=== PATIENT | female | born 1960 | race Caucasian/White ===

== ENCOUNTER 2017-01-07 14:56 | Emergency (ER) | payer OTHER ==
[2017-01-07 15:03] VITALS: BMI 28.1
[2017-01-07 15:09] VITALS: PULSE 83; TEMP 98; O2SAT 100
--- NOTE | 2017-01-07 15:47 | C.PDOC ---
History Of Present Illness <Miroslava Medel Geri Last Filed: 01/07/17 15:45> <Meghana YOUSIFJunior - Last Filed: 01/07/17 17:35> 56-year-old female, presents to the emergency department with complaints of palpitations that started last night, associated with a mild headache. Patient notes back pain and pain in B/L leg pain since yesterday. Denies nausea/vomiting , fevers, shortness of breath, or any other associated symptoms. No other complaints at this time. (Junior Kowalski DO) <Miroslava Medel - Last Filed: 01/07/17 15:45> <Meghana YOUSIFJunior - Last Filed: 01/07/17 17:35> Time Seen by Provider: 01/07/17 15:16 Chief Complaint (Nursing): Chest Pain Past Medical History - Medical History PMH: Arthritis, Asthma Surgical History: Appendectomy Family History: States: Unknown Family Hx - Social History Hx Tobacco Use: No Hx Alcohol Use: No Hx Substance Use: No - Immunization History Hx Tetanus Toxoid Vaccination: No Hx Influenza Vaccination: No Hx Pneumococcal Vaccination: No <Miroslava Medel Violette Nevarez Last Filed: 01/07/17 15:45> Review Of Systems Except As Marked, All Systems Reviewed And Found Negative. Constitutional: Negative for: Fever, Chills Cardiovascular: Positive for: Palpitations Respiratory: Negative for: Shortness of Breath Gastrointestinal: Negative for: Nausea, Vomiting Musculoskeletal: Positive for: Leg Pain. Negative for: Back Pain Neurological: Positive for: Headache <Meghana YOUSIFJunior - Last Filed: 01/07/17 17:35> Physical Exam - Physical Exam Appears: Non-toxic, No Acute Distress Skin: Normal Color, Warm, Dry Head: Atraumatic, Normacephalic Eye(s): bilateral: Normal Inspection, PERRL, EOMI Nose: Normal Throat: Normal Neck: Normal Cardiovascular: Rhythm Regular Respiratory: Normal Breath Sounds Gastrointestinal/Abdominal: Normal Exam Back: Normal Inspection Extremity: Normal ROM <Meghana YOUSIFJunior - Last Filed: 01/07/17 17:35> ED Course And Treatment O2 Sat by Pulse Oximetry: 100 <Miroslava Medel Geri Last Filed: 01/07/17 15:45> - Laboratory Results Result Diagrams: 01/07/17 15:56 01/07/17 15:56 ECG: Interpreted By Me, Viewed By Me ECG Interpretation: No Acute Changes Rate From EC <Meghana YOUSIFJunior - Last Filed: 01/07/17 17:35> Disposition - Disposition Disposition Time: 16:00 - POA Present On Arrival: None <Miroslava Medel - Last Filed: 01/07/17 15:45> <Meghana YOUSIFJunior - Last Filed: 01/07/17 17:35> - Disposition Referrals: [facility], [Non-Staff] - Disposition: HOME/ ROUTINE Condition: STABLE Additional Instructions: Thank you for letting us take care of you today. Your provider was Dr. Kowalski. You were treated for palpitations. The emergency medical care you received today was directed at your acute symptoms. If you were prescribed any medication, please fill it and take as directed. It may take several days for your symptoms to resolve. Return to the Emergency Department if your symptoms worsen, do not improve, or if you have any other problems. Please contact your doctor or call one of the physicians/clinics you have been referred to that are listed on the Patient Visit Information form that is included in your discharge packet. Bring any paperwork you were given at discharge with you along with any medications you are taking to your follow up visit. Our treatment cannot replace ongoing medical care by a primary care provider (PCP) outside of the emergency department. Thank you for allowing the [facility] team to be part of your care today. Follow up with your doctor in 1-2 days for re-evaluation. Instructions: Palpitations (ED) Forms: Gen Discharge Inst Yakut Print Language: GREEK - Clinical Impression Clinical Impression: Abdominal pain <Miroslava Medel - Last Filed: 01/07/17 15:45> - Scribe Statement The provider has reviewed the documentation as recorded by the Scribe <Junior Kowalski DO - Last Filed: 01/07/17 17:35> - Scribe Statement Nelly Tanner All medical record entries made by the Scribe were at my direction and personally dictated by me. I have reviewed the chart and agree that the record accurately reflects my personal performance of the history, physical exam, medical decision making, and the department course for this patient. I have also personally directed, reviewed, and agree with the discharge instructions and disposition. (Junior Kowalski DO)
[2017-01-07 16:04] LABS: BASO % 0.5 % (0.0-2.0); EOS # 0.1 K/uL (0.0-0.7); EOS % 2.1 % (0.0-4.0); HEMATOCRIT 38.2 % (34.0-47.0); LYMPH # 1.9 K/uL (1.0-4.3); LYMPH % 30.5 % (20.0-40.0); MEAN CELL VOLUME 88.4 fL (81.0-99.0); MEAN CORPUSCULAR HEMOGLOBIN 29.4 pg (27.0-31.0); MEAN CORPUSCULAR HGB CONC 33.3 g/dL (33.0-37.0); MONO # 0.8 K/uL (0.0-0.8); MONO % 12.3 % (0.0-10.0); RED CELL DISTRIBUTION WIDTH 13.7 % (11.5-14.5); WHITE BLOOD COUNT 6.1 K/uL (4.8-10.8)
[2017-01-07 16:10] LABS: CHLORIDE 102 mmol/L (98-107)
[2017-01-07 16:11] LABS: SODIUM 141 mmol/L (132-148)
[2017-01-07 16:13] LABS: ALB/GLOB RATIO 1.2 (1.0-2.1); ALKALINE PHOSPHATASE 52 U/L (38-126); AST/SGOT 24 U/L (14-36); BILIRUBIN,TOTAL 0.3 mg/dL (0.2-1.3); BLOOD UREA NITROGEN 12 mg/dL (7-17); CARBON DIOXIDE 28 mmol/L (22-30); GFR AFRICAN-AMERICAN > 60; TOTAL PROTEIN 7.6 g/dL (6.3-8.3)
[2017-01-07 16:14] LABS: ALT/SGPT 31 U/L (9-52); CALCIUM 8.7 mg/dl (8.6-10.4); GLUCOSE,RANDOM 85 mg/dL (65-105)
--- NOTE | 2017-01-07 16:26 | RAD ---
PROCEDURE: CHEST RADIOGRAPH, 1 VIEW HISTORY: Chest pain COMPARISON: 12/18/2014. FINDINGS: LUNGS: The lungs are clear. PLEURA: No pneumothorax or pleural fluid seen. CARDIOVASCULAR: Normal. OSSEOUS STRUCTURES: No significant abnormalities. VISUALIZED UPPER ABDOMEN: Normal. OTHER FINDINGS: None. IMPRESSION: No active pulmonary disease.
[2017-01-07] MEDS: Sodium Chloride 0.9% 1,000 ML IV SCH (17:01)
[2017-01-07 17:29] VITALS: BP 130/68; RESP 20
--- NOTE | 2017-01-07 18:27 | C.PDOC ---
History Of Present Illness 56-year-old female, presents to the emergency department with complaints of palpitations that started last night, associated with a mild headache. Patient notes back pain and pain in B/L leg pain since yesterday. Denies nausea/vomiting , fevers, shortness of breath, or any other associated symptoms. No other complaints at this time Time Seen by Provider: 01/07/17 15:16 Chief Complaint (Nursing): Chest Pain History Per: Patient History/Exam Limitations: no limitations Onset/Duration Of Symptoms: Days Current Symptoms Are (Timing): Still Present Past Medical History Reviewed: Historical Data, Nursing Documentation, Vital Signs Vital Signs: Last Vital Signs Temp 98 F 01/07/17 15:08 Pulse 83 01/07/17 17:22 Resp 20 01/07/17 17:22 BP 130/68 01/07/17 17:22 Pulse Ox 100 01/07/17 18:27 - Medical History PMH: Arthritis, Asthma Surgical History: Appendectomy Family History: States: No Known Family Hx - Social History Hx Tobacco Use: No Hx Alcohol Use: No Hx Substance Use: No - Immunization History Hx Tetanus Toxoid Vaccination: No Hx Influenza Vaccination: No Hx Pneumococcal Vaccination: No Review Of Systems Except As Marked, All Systems Reviewed And Found Negative. Constitutional: Negative for: Fever Cardiovascular: Positive for: Palpitations Respiratory: Positive for: Shortness of Breath Gastrointestinal: Negative for: Nausea, Vomiting Musculoskeletal: Positive for: Back Pain, Leg Pain Skin: Negative for: Rash Neurological: Negative for: Weakness, Numbness, Headache Physical Exam - Physical Exam Appears: Non-toxic, No Acute Distress Skin: Warm, Dry, No Rash Head: Atraumatic, Normacephalic Eye(s): bilateral: Normal Inspection, PERRL, EOMI Nose: Normal Oral Mucosa: Moist Lips: Normal Appearing Neck: Normal ROM Cardiovascular: Rhythm Regular, No Murmur Respiratory: Normal Breath Sounds, No Accessory Muscle Use Gastrointestinal/Abdominal: Soft, No Tenderness Back: Normal Inspection Extremity: Normal ROM Neurological/Psych: Oriented x3 ED Course And Treatment - Laboratory Results Result Diagrams: 01/07/17 15:56 01/07/17 15:56 ECG: Interpreted By Me, Viewed By Me ECG Rhythm: Sinus Rhythm ECG Interpretation: No Acute Changes Rate From EC O2 Sat by Pulse Oximetry: 100 (on RA) Disposition - Disposition Referrals: [facility], [Non-Staff] - Disposition: HOME/ ROUTINE Disposition Time: 16:45 Condition: STABLE Additional Instructions: Thank you for letting us take care of you today. Your provider was Dr. Kowalski. You were treated for palpitations. The emergency medical care you received today was directed at your acute symptoms. If you were prescribed any medication, please fill it and take as directed. It may take several days for your symptoms to resolve. Return to the Emergency Department if your symptoms worsen, do not improve, or if you have any other problems. Please contact your doctor or call one of the physicians/clinics you have been referred to that are listed on the Patient Visit Information form that is included in your discharge packet. Bring any paperwork you were given at discharge with you along with any medications you are taking to your follow up visit. Our treatment cannot replace ongoing medical care by a primary care provider (PCP) outside of the emergency department. Thank you for allowing the [facility] team to be part of your care today. Follow up with your doctor in 1-2 days for re-evaluation. Instructions: Palpitations (ED) Forms: Gen Discharge Inst Japanese Print Language: [id number] - Clinical Impression Clinical Impression: Palpitations - Scribe Statement The provider has reviewed the documentation as recorded by the Leighannibbuddy Tanner All medical record entries made by the Leighannibbuddy were at my direction and personally dictated by me. I have reviewed the chart and agree that the record accurately reflects my personal performance of the history, physical exam, medical decision making, and the department course for this patient. I have also personally directed, reviewed, and agree with the discharge instructions and disposition.
== END 2017-01-07 17:29 | disposition home or self-care (01) ==
LOC: C.ER 14:56
DX: R00.2 Palpitations (principal)
CPT/HCPCS: 71010; 80053; 84484; 85025; 96361; 96374; 99284; J1885; J7040

== ENCOUNTER 2017-03-25 21:22 | Emergency (ER) | payer OTHER ==
[2017-03-25 21:22] VITALS: BMI 28.1
[2017-03-25 21:39] VITALS: TEMP 98; O2SAT 100
--- NOTE | 2017-03-25 21:44 | C.PDOC ---
History Of Present Illness Patient presents complaining of cough with chest pain, sore throat and headache which began 3 weeks ago. She has a history of asthma and uses albuterol both via nebulizer and HFA. She has been using the medication more than usual. She denies having any fever. She is complaining of pain when swallowing and feels a dry tightness in her throat. Swallowing makes her cough. She also has nasal stuffiness and congestion but no nasal discharge. She was intubated for a laparoscopy last week but states that the symptoms began prior to this. She denies any prior hospitalization or intubations for asthma. Time Seen by Provider: 03/25/17 21:33 Chief Complaint (Nursing): Shortness Of Breath History Per: Patient History/Exam Limitations: no limitations Current Symptoms Are (Timing): Still Present Quality: Dull Exacerbating Factor(s): Coughing Current Respiratory Medications: Albuterol Past Medical History Vital Signs: Last Vital Signs Temp 98.0 F 03/25/17 21:32 Pulse 83 03/25/17 21:32 Resp 15 03/25/17 21:32 BP 157/78 H 03/25/17 21:32 Pulse Ox 100 03/25/17 22:17 - Medical History PMH: Arthritis, Asthma, Gastritis, Osteoporosis Other PMH: Lupus Surgical History: Appendectomy Other Surgeries: Fibroids Family History: States: Unknown Family Hx - Social History Hx Tobacco Use: No Hx Alcohol Use: No Hx Substance Use: No - Immunization History Hx Tetanus Toxoid Vaccination: No Hx Influenza Vaccination: No Hx Pneumococcal Vaccination: No Review Of Systems Except As Marked, All Systems Reviewed And Found Negative. ENT: Positive for: Throat Pain Cardiovascular: Positive for: Chest Pain Respiratory: Positive for: Cough Neurological: Positive for: Headache Physical Exam - Physical Exam Appears: No Acute Distress Skin: Normal Color, Warm, Dry Head: Atraumatic Eye(s): bilateral: Normal Inspection, PERRL, EOMI Oral Mucosa: Moist Tongue: Normal Appearing Throat: Normal, No Erythema, No Exudate Neck: Normal, Normal ROM Lymphatic: No Adenopathy Chest: Symmetrical Cardiovascular: Rhythm Regular, No Murmur Respiratory: Normal Breath Sounds, No Decreased Breath Sounds, No Accessory Muscle Use, No Rales, No Rhonchi, No Wheezing Gastrointestinal/Abdominal: Normal Exam, Soft, No Tenderness Pulses: Left Carotid: Normal, Right Carotid: Normal Neurological/Psych: Oriented x3, Normal Speech, Normal Cognition ED Course And Treatment - Laboratory Results Result Diagrams: 03/25/17 22:43 03/25/17 22:43 Lab Interpretation: No Acute Changes ECG: Interpreted By Me ECG Rhythm: Sinus Rhythm ECG Interpretation: Normal O2 Sat by Pulse Oximetry: 100 Pulse Ox Interpretation: Normal - Radiology CXR: Interpreted by Me CXR Interpretation: Yes: No Acute Disease Reevaluation Time: 23:14 Reassessment Condition: Improved (Still resting quietly without evidence of difficulty breathing. Lungs clear, no wheezing.) Disposition Counseled Patient/Family Regarding: Studies Performed, Diagnosis, Need For Followup, Rx Given - Disposition Referrals: Shaan Veliz MD [Staff Provider] - Disposition: HOME/ ROUTINE Disposition Time: 23:14 Condition: STABLE Prescriptions: Fluticasone Nasal [Flonase] 2 spr NS DAILY #1 inhaler Prednisone 50 mg PO DAILY #5 tablet Instructions: Asthma (ED), Upper Respiratory Infection (ED) Forms: DN2K (Danish) - Clinical Impression Clinical Impression: URI (upper respiratory infection), Asthma
[2017-03-25 22:49] LABS: BASO % 0.3 % (0.0-2.0); EOS # 0.2 K/uL (0.0-0.7); EOS % 3.2 % (0.0-4.0); HEMATOCRIT 35.7 % (34.0-47.0); LYMPH # 2.1 K/uL (1.0-4.3); LYMPH % 32.1 % (20.0-40.0); MEAN CELL VOLUME 88.1 fL (81.0-99.0); MEAN CORPUSCULAR HEMOGLOBIN 29.6 pg (27.0-31.0); MEAN CORPUSCULAR HGB CONC 33.6 g/dL (33.0-37.0); MEAN PLATELET VOLUME 8.2 fL (7.2-11.7); MONO # 0.6 K/uL (0.0-0.8); MONO % 9.7 % (0.0-10.0); NRBC % 0.1 % (0.0-2.0); RED CELL DISTRIBUTION WIDTH 13.3 % (11.5-14.5); WHITE BLOOD COUNT 6.5 K/uL (4.8-10.8)
[2017-03-25 22:55] LABS: CHLORIDE 105 mmol/L (98-107)
[2017-03-25 22:56] LABS: POTASSIUM 3.2 mmol/L (3.6-5.2); SODIUM 142 mmol/L (132-148)
[2017-03-25 22:58] LABS: BILIRUBIN,TOTAL 0.3 mg/dL (0.2-1.3); CARBON DIOXIDE 27 mmol/L (22-30); GFR AFRICAN-AMERICAN > 60
[2017-03-25 22:59] LABS: ALB/GLOB RATIO 1.1 (1.0-2.1); ALKALINE PHOSPHATASE 71 U/L (38-126); ALT/SGPT 39 U/L (9-52); AST/SGOT 28 U/L (14-36); BLOOD UREA NITROGEN 12 mg/dL (7-17); CALCIUM 8.7 mg/dl (8.6-10.4); GLUCOSE,RANDOM 122 mg/dL (65-105); TOTAL PROTEIN 6.9 g/dL (6.3-8.3)
[2017-03-26 00:15] VITALS: BP 113/68; PULSE 88; RESP 20
--- NOTE | 2017-03-26 10:16 | RAD ---
PROCEDURE: CHEST RADIOGRAPH, 1 VIEW HISTORY: SOB COMPARISON: 01/07/2017 FINDINGS: LUNGS: No consolidation. PLEURA: No pneumothorax or pleural fluid seen. CARDIOVASCULAR: Probable mild cardiomegaly -no definite interval change perceived. The central pulmonary vasculature appears top OSSEOUS STRUCTURES: No significant abnormalities. VISUALIZED UPPER ABDOMEN: Normal. OTHER FINDINGS: None. IMPRESSION: Probable mild cardiomegaly. Central pulmonary vasculature - top normal . No consolidation. No effusion. No pneumothorax
--- NOTE | 2017-03-27 12:27 | CARD ---
APPROVED REPORT EKG Measurement Heart [id number] <Conclusion> Normal sinus rhythm Normal ECG
== END 2017-03-25 23:30 | disposition home or self-care (01) ==
LOC: C.ER 21:22
DX: J06.9 Acute upper respiratory infection, unspecified (principal)

== ENCOUNTER 2018-05-11 09:41 | Emergency (ER) | payer MEDICARE, OTHER ==
[2018-05-11 09:42] VITALS: BMI 28.1
[2018-05-11 09:57] VITALS: RESP 18; TEMP 98.6
[2018-05-11 11:20] LABS: SQUAMOUS EPITHIAL 3 /hpf (0-5); URINE BACTERIA RARE (<OCC); URINE BILIRUBIN NEGATIVE (NEGATIVE); URINE BLOOD 2+ (NEGATIVE); URINE CLARITY Clear (Clear); URINE COLOR Yellow (YELLOW); URINE GLUCOSE (UA) NORMAL (Normal); URINE LEUKOCYTE ESTERASE NEG Leu/uL (Negative); URINE PROTEIN NEGATIVE (NEGATIVE); URINE UROBILINOGEN NORMAL mg/dL (0.2-1.0)
[2018-05-11 11:22] LABS: HEMOGLOBIN 13.3 g/dL (11.0-16.0); MEAN CELL VOLUME 88.2 fL (81.0-99.0); RBC 4.44 Mil/uL (3.80-5.20); WHITE BLOOD COUNT 6.4 K/uL (4.8-10.8)
[2018-05-11 11:23] LABS: BASO % 0.5 % (0.0-2.0); EOS # 0.1 K/uL (0.0-0.7); EOS % 1.6 % (0.0-4.0); LYMPH # 1.5 K/uL (1.0-4.3); LYMPH % 24.2 % (20.0-40.0); MEAN CORPUSCULAR HEMOGLOBIN 29.9 pg (27.0-31.0); MEAN CORPUSCULAR HGB CONC 33.9 g/dL (33.0-37.0); MEAN PLATELET VOLUME 8.3 fL (7.2-11.7); MONO # 0.6 K/uL (0.0-0.8); MONO % 10.2 % (0.0-10.0); NEUT % 63.5 % (50.0-75.0); RED CELL DISTRIBUTION WIDTH 13.5 % (11.5-14.5)
[2018-05-11 11:28] VITALS: BP 121/67; PULSE 61; O2SAT 98
[2018-05-11 11:36] LABS: BLOOD UREA NITROGEN 11 mg/dL (7-17); CALCIUM 9.6 mg/dl (8.6-10.4); GFR NON-AFRICAN AMERICAN > 60
--- NOTE | 2018-05-11 11:40 | RAD ---
Date of service: 05/11/2018 HISTORY: chest pain COMPARISON: 03/25/2017 FINDINGS: LUNGS: No active pulmonary disease. PLEURA: No significant pleural effusion identified, no pneumothorax apparent. CARDIOVASCULAR: Normal. OSSEOUS STRUCTURES: No significant abnormalities. VISUALIZED UPPER ABDOMEN: Normal. OTHER FINDINGS: None. IMPRESSION: No active disease.
--- NOTE | 2018-05-11 13:58 | C.PDOC ---
History Of Present Illness 57-year-old female, PMHx includes Lupus, presents to the emergency department with complaints of right flank pain since yesterday. Patient states she woke up this morning with pain in chest, back and neck. She denies any shortness of breath, nausea/vomiting, dysuria, hematuria, chest pain or any other associated symptoms. No other complaints at this time. Time Seen by Provider: 05/11/18 10:37 Chief Complaint (Nursing): Chest Pain Past Medical History Vital Signs: Last Vital Signs Temp 98.6 F 05/11/18 09:48 Pulse 61 05/11/18 11:28 Resp 18 05/11/18 12:35 BP 121/67 05/11/18 11:28 Pulse Ox 98 05/11/18 11:28 - Medical History PMH: Arthritis, Asthma, Gastritis, Hiatal Hernia, Osteoporosis Surgical History: Appendectomy Family History: States: Unknown Family Hx - Social History Hx Tobacco Use: No Hx Alcohol Use: No Hx Substance Use: No - Immunization History Hx Tetanus Toxoid Vaccination: No Hx Influenza Vaccination: No Hx Pneumococcal Vaccination: No Review Of Systems Constitutional: Negative for: Fever, Malaise Respiratory: Negative for: Shortness of Breath Gastrointestinal: Negative for: Nausea, Vomiting Genitourinary: Negative for: Dysuria, Frequency, Hematuria Musculoskeletal: Positive for: Back Pain Physical Exam - Physical Exam Appears: Non-toxic, No Acute Distress Skin: Warm, Dry, No Rash Head: Atraumatic, Normacephalic Eye(s): bilateral: Normal Inspection Nose: Normal Oral Mucosa: Moist Lips: Normal Appearing Neck: Normal ROM Chest: Symmetrical Cardiovascular: Rhythm Regular, No Murmur Respiratory: Normal Breath Sounds, No Accessory Muscle Use Gastrointestinal/Abdominal: Soft, No Tenderness, No Guarding, No Rebound Back: No CVA Tenderness, Paraspinal Tenderness (thoracic, diffuse) Extremity: Normal ROM, No Deformity Neurological/Psych: Oriented x3, Normal Speech ED Course And Treatment - Laboratory Results Result Diagrams: 05/11/18 11:12 05/11/18 11:12 ECG: Interpreted By Me ECG Rhythm: Sinus Rhythm ECG Interpretation: Normal Rate From EC O2 Sat by Pulse Oximetry: 98 Pulse Ox Interpretation: Normal (RA) - Radiology CXR: Read By Radiologist CXR Interpretation: Yes: No Acute Disease Medical Decision Making Medical Decision Making: Patient given toradol for pain. On re-eval states that pain has improved. Results discussed, advised outpatient followup as needed. Return to the ED for any new or worsening symptoms. Disposition - Disposition Disposition: HOME/ ROUTINE Disposition Time: 12:35 Condition: GOOD Additional Instructions: SHERIN TURNER, thank you for letting us take care of you today. Your provider was Nay Tarango MD and you were treated for LOWER BACK PAIN. The emergency medical care you received today was directed at your acute symptoms. If you were prescribed any medication, please fill it and take as directed. It may take several days for your symptoms to resolve. Return to the Emergency Department if your symptoms worsen, do not improve, or if you have any other problems. Please contact your doctor or call one of the physicians/clinics you have been referred to that are listed on the Patient Visit Information form that is included in your discharge packet. Bring any paperwork you were given at discharge with you along with any medications you are taking to your follow up visit. Our treatment cannot replace ongoing medical care by a primary care provider outside of the emergency department. Thank you for allowing the [facility] team to be part of your care today. If you had an X-Ray or CT scan: A Radiologist will review the ED reading if any change in treatment is needed we will contact you. If you had a blood, urine, or wound culture: It will take several days for the results, if any change in treatment is needed we will contact you. If you had an STI test: It will take 48 hours for the results. Please call after 1 week if you have not heard back. Instructions: Costochondritis (DC) Forms: [employer] (Azeri) - Clinical Impression Clinical Impression: Chest pain, Thoracic back pain - Scribe Statement The provider has reviewed the documentation as recorded by the Scribe (Nelly Tanner) Provider Attestation: All medical record entries made by the Scribe were at my direction and personally dictated by me. I have reviewed the chart and agree that the record accurately reflects my personal performance of the history, physical exam, medical decision making, and the department course for this patient. I have also personally directed, reviewed, and agree with the discharge instructions and disposition.
--- NOTE | 2018-05-12 16:05 | CARD ---
APPROVED REPORT Date of service: 05/11/2018 EKG Measurement Heart [id number] [place] [id number] <Conclusion> Normal sinus rhythm Normal ECG
== END 2018-05-11 12:45 | disposition home or self-care (01) ==
LOC: C.ER 09:41
DX: R07.9 Chest pain, unspecified (principal); M54.6 Pain in thoracic spine
CPT/HCPCS: 71045; 80048; 81001; 84484; 85025; 93005; 96374; 99285; J1885